=== PATIENT | male | born 1970 | race Caucasian/White ===

== ENCOUNTER 2020-10-21 08:03 | Day surgery (SDC) | payer BC, OTHER ==
[~2020-10-21 08:03] MED LIST: Lactated Ringers 1,000 ML IV SCH; Sodium Chloride 0.9% 10 ML SDV IV PRN; Sodium Chloride 0.9% 10 ML Syringe FLUSH PRN; Sodium Chloride 0.9% 2.5 ML Syringe FLUSH PRN
--- NOTE | 2020-10-21 08:42 | PCM.PREANE ---
Preanesthetic Assessment - Procedure Proposed Procedure: Colonoscopy - Anesthesia/Transfusion/Family Hx Anesthesia History: Prior Anesthesia Without Reaction Transfusion History: No Prior Transfusion(s) - Review of Systems General: No Symptoms Pulmonary: No Symptoms Cardiovascular: No Symptoms Gastrointestinal: No Symptoms Neurological: No Symptoms Other: Reports: None - Physical Assessment NPO Status Date: 10/19/20 NPO Status Time: 18:00 Vital Signs: Last Vital Signs Temp 97.2 F 10/21/20 08:17 Pulse 74 10/21/20 08:17 Resp 16 10/21/20 08:17 BP 130/86 10/21/20 08:17 Pulse Ox 95 10/21/20 08:17 Height: 5 ft 10 in Weight: 102.058 kg (obesity) ASA Class: 2 Mental Status: Alert & Oriented x3 Airway Class: Mallampati = 2 Dentition: Reports: Normal Dentition Thyro-Mental Finger Breadths: 3 Mouth Opening Finger Breadths: 3 ROM/Head Extension: Full Lungs: Clear to Auscultation, Normal Respiratory Effort Cardiovascular: Regular Rate, Regular Rhythm - Allergies Allergies/Adverse Reactions: Allergies Allergy/AdvReac Type Severity Reaction Status Date / Time No Known Allergies Allergy Verified 10/15/20 07:53 - Acknowledgements Anesthesia Type Planned: General Anesthesia Pt an Appropriate Candidate for the Planned Anesthesia: Yes Alternatives and Risks of Anesthesia Discussed w Pt/Guardian: Yes Pt/Guardian Understands and Agrees with Anesthesia Plan: Yes PreAnesthesia Questionnaire HEENT History: Reports: Other (See Below) Other HEENT History: wears contacts Cardiovascular History: Reports: None Respiratory History: Reports: None Gastrointestinal History: Reports: Hemorrhoids Genitourinary History: Reports: None Musculoskeletal History: Reports: None Neurological History: Reports: None Psychiatric History: Reports: Anxiety Endocrine/Metabolic History: Reports: Obesity/BMI 30+ Hematologic History: Reports: None Immunologic History: Reports: None Oncologic (Cancer) History: Reports: None Dermatologic History: Reports: None - Past Surgical History Head Surgeries/Procedures: Reports: None HEENT Surgical History: Reports: None Cardiovascular Surgical History: Reports: None Respiratory Surgical History: Reports: None GI Surgical History: Reports: None Male Surgical History: Reports: None Endocrine Surgical History: Reports: None Neurological Surgical History: Reports: None Musculoskeletal Surgical History: Reports: Arthroscopic Knee Oncologic Surgical History: Reports: None Dermatological Surgical History: Reports: None - SUBSTANCE USE Tobacco Use Status *Q: Never Tobacco User - HOME MEDS Home Medications: Home Meds Aspirin [Adult Aspirin Regimen] 81 mg PO DAILY 10/15/20 [History] ClonazePAM [KlonoPIN] 0.5 mg PO DAILY PRN 10/15/20 [History] Multivitamin 1 tab PO DAILY 10/15/20 [History] [place]-3/DHA/Epa/Fish Oil [Fish Oil 500 MG Softgel] 500 mg PO DAILY 10/15/20 [History] - CURRENT (IN HOUSE) MEDS Current Meds: Current Medications Lactated Ringer's (Ringers, Lactated) 1,000 mls @ 125 mls/hr IV ASDIRECTED NAINA Last Admin: 10/21/20 08:28 Dose: 125 mls/hr Documented by: Sodium Chloride (Sodium Chloride 0.9% 10 Ml Syringe) 10 ml FLUSH ASDIRECTED PRN PRN Reason: Keep Vein Open Sodium Chloride (Sodium Chloride 0.9% 2.5 Ml Syringe) 2.5 ml FLUSH ASDIRECTED PRN PRN Reason: Keep Vein Open Sodium Chloride (Sodium Chloride 0.9% 10 Ml Syringe) 10 ml FLUSH ASDIRECTED PRN PRN Reason: Keep Vein Open Sodium Chloride (Sodium Chloride 0.9% 2.5 Ml Syringe) 2.5 ml FLUSH ASDIRECTED PRN PRN Reason: Keep Vein Open Sodium Chloride (Sodium Chloride 0.9% 10 Ml Sdv) 10 ml IV ASDIRECTED PRN PRN Reason: IV Use
[2020-10-21] MEDS ORDERED: Lidocaine 2% 5 ML SDV ONE (09:04)
[2020-10-21] MEDS ORDERED: Propofol 200 MG/20 ML SDV ONE ×2 (09:04→09:36)
[2020-10-21] MEDS ORDERED: fentaNYL 100 MCG/2 ML SDV ONE (09:07)
--- NOTE | 2020-10-21 09:48 | PCM.OPNOTE ---
- General Post-Op/Procedure Note Date of Surgery/Procedure: 10/21/20 Operative Procedure(s): Diagnostic colonoscopy with polypectomy Findings: Large colon polyp on a stalk at 20 cm Pre Op Diagnosis: positive cologuard test Post-Op Diagnosis: sigmoid colon polyp Anesthesia Technique: MAC Primary Surgeon: Jen Hernandez Condition: Good
--- NOTE | 2020-10-21 10:05 | PCM.POSTAN ---
POST ANESTHESIA ASSESSMENT - MENTAL STATUS Mental Status: Alert, Oriented - VITAL SIGNS Vital Signs: Last Vital Signs Temp 97.5 F 10/21/20 09:44 Pulse 73 10/21/20 09:55 Resp 15 10/21/20 09:55 BP 99/60 10/21/20 09:55 Pulse Ox 97 10/21/20 09:55 - RESPIRATORY Respiratory Status: Respiratory Rate WNL, Airway Patent, O2 Saturation Stable - CARDIOVASCULAR CV Status: Pulse Rate WNL, Blood Pressure Stable - GASTROINTESTINAL GI Status: No Symptoms - POST OP HYDRATION Hydration Status: Adequate & Stable
--- NOTE | 2020-10-21 10:06 | PCM48HPAN ---
Post Anesthesia Note - EVALUATION WITHIN 48HRS OF ANESTHETIC Vital Signs in Normal Range: Yes Patient Participated in Evaluation: Yes Respiratory Function Stable: Yes Airway Patent: Yes Cardiovascular Function Stable: Yes Hydration Status Stable: Yes Pain Control Satisfactory: Yes Nausea and Vomiting Control Satisfactory: Yes Mental Status Recovered: Yes Vital Signs: Last Vital Signs Temp 97.5 F 10/21/20 09:44 Pulse 66 10/21/20 10:00 Resp 11 L 10/21/20 10:00 BP 98/60 10/21/20 10:00 Pulse Ox 95 10/21/20 10:00 - COMMENTS/OBSERVATIONS Free Text/Narrative:: Pt doing well post-op. VSS. No apparent anesthetic complications. Dr. Jose Sosa
--- NOTE | 2020-10-21 11:07 | OR ---
SURGEON: JEN HERNANDEZ MD DATE OF PROCEDURE: 10/21/2020 PREOPERATIVE DIAGNOSIS: Positive Cologuard test. POSTOPERATIVE DIAGNOSIS: Sigmoid colon polyp. PROCEDURE PERFORMED: Diagnostic colonoscopy with polypectomy. PRIMARY SURGEON: Jen Hernandez MD ANESTHESIA: MAC. INSTRUMENT USED: Olympus colonoscope. EXTENT OF EXAM: To the cecum. PREPARATION: Good. LIMITATIONS: None. INDICATIONS FOR EXAMINATION: The patient is a 49-year-old male who recently underwent a Cologuard test, which came back as positive. I explained the need for diagnostic colonoscopy. I explained the procedure, expected perioperative course, and the risks. He verbalized understanding and wishes to proceed. PROCEDURE IN DETAIL: The patient was brought to the endoscopy suite and placed in the left lateral decubitus position. A time-out was completed verifying the patient's name, age, date of , allergies, and procedure to be performed. Monitored anesthesia care was induced and continuous oxygen was provided via nasal cannula throughout the procedure. After adequate sedation was achieved, a digital rectal exam was performed. This exam was within normal limits. A well-lubricated colonoscope was inserted into the rectum and advanced under direct visualization to the level of the cecum. The cecum was identified by both visual and anatomic landmarks. A photograph was taken of the cecal cap; however, I was unable to retroflex the scope within the cecum due to looping of the scope more proximally. The scope was then fully withdrawn while examining the color, texture, anatomy, and integrity of mucosa from the cecum to the anal canal. The patient was found to have a pedunculated large polyp in the distal sigmoid colon at 20 cm. This was removed using a looped hot snare. The residual stalk was then inked for identification in the future. The remainder of the colon appeared normal. The scope was brought into the rectum and retroflexed to allow visualization of the anal canal opening. This appeared normal, and a photograph was taken. The scope was then straightened out and fully withdrawn. The cecum to anus time was 15 minutes. The patient tolerated the procedure well and was transferred to the PACU in stable condition. ENDOSCOPIC DIAGNOSIS: Sigmoid colon polyp. RECOMMENDATIONS: Follow up in clinic in 2 weeks. HARRIS HUMPHRIES /[id number]
== END 2020-10-21 10:28 | disposition home or self-care (01) ==
LOC: MW.SDS 08:03
PROVIDERS: ATTEND Surgery
DX: D12.5 Benign neoplasm of sigmoid colon (principal); E66.9 Obesity, unspecified; Z79.82 Long term (current) use of aspirin; Z79.899 Other long term (current) drug therapy; Z98.890 Other specified postprocedural states; Z68.32 Body mass index [BMI] 32.0-32.9, adult
CPT/HCPCS: 45385; J2704; J3010; J7120; 00811; 88305

== ENCOUNTER 2020-12-12 08:27 | Emergency (ER) | payer BC ==
[2020-12-12] MEDS ORDERED: Sodium Chloride 0.9% 10 ML Syringe FLUSH PRN (08:49)
[2020-12-12] MEDS ORDERED: Ondansetron 4 MG/2 ML SDV IVPUSH ONE (08:49)
[2020-12-12] MEDS ORDERED: Sodium Chloride 0.9% 2.5 ML Syringe FLUSH PRN (08:49)
--- NOTE | 2020-12-12 08:49 | EDM.PDOC ---
ED HPI GENERAL MEDICAL PROBLEM - General Chief Complaint: Gastrointestinal Problem Stated Complaint: ABDOMINAL PROBLEMS/CONSTANT GAGING Time Seen by Provider: 12/12/20 08:30 - History of Present Illness INITIAL COMMENTS - FREE TEXT/NARRATIVE: History of present illness: [] Patient perceives gas moving about and a little discomfort in his abdomen for 3 weeks. The discomfort moves from under the left of the right costal margin and now sort of localized in the epigastrium. Over the last couple of days it is bothering him more in the epigastrium. He is nauseated for couple of days. His appetite is diminished. He does not have fever and chills. He is able to tolerate oral intake. His bowels and bladder working normally. He is not orthostatic. The patient drinks a little better in the summer when he is at the [place] but otherwise almost never drinks alcohol at all. He does not smoke. 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 He occasionally takes clonazepam for anxiety related to stress. In the summer the patient had a positive Cologuard test and had a colonoscopy with removal of a polyp that was a villous adenoma and benign. The patient has knee arthroscopy in the remote past. He otherwise has no surgery and no medical history of significance. There is a family history of breast cancer but not of any GI malignancy. Review of systems: As per history of present illness and below otherwise all systems reviewed and negative. Past medical history: As per history of present illness and as reviewed below otherwise noncontributory. Surgical history: As per history of present illness and as reviewed below otherwise noncontributory. Social history: No reported history of drug or alcohol abuse. Family history: As per history of present illness and as reviewed below otherwise noncontributor y. Physical exam: Constitutional - well developed, well-nourished and in no acute distress HEENT - normocephalic, no evidence of trauma - external nose and mouth normal - no mass in neck and no JVD - mucosae moist EYES - full EOM, PERRL, no icterus - no evidence of inflammation, injection, or drainage Respiratory - no respiratory distress, equal bilateral expansion, lungs clear to auscultation and no abnormal lung sounds Cardiovascular - Regular Rhythm with S1 and S2 appreciated and no murmur, gallop or rub. [place] digits with brisk capillary refill in the nails. GI - abdomen tender in the epigastrium only-soft without distension or organomegaly -diminished bowel sounds - no guard or rebound Musculoskeletal no gross deformity of long bones or joints - no tenderness, swelling or edema Neurologic - Alert and oriented times four - CN II-XII grossly intact - motor sensory and coordination symmetrically normal Psychiatric - appropriate mood and affect with normal thought content Hematologic - No petechiae or purpura - mucosa appropriate color and sclera not pale - normal nail bed color and refill Integument - no rash or evidence of trauma - normal turgor Diagnostics: [] Therapeutics: [] Impression: [] Plan: [] Definitive disposition and diagnosis as appropriate pending reevaluation and review of above. - Related Data Allergies Allergy/AdvReac Type Severity Reaction Status Date / Time No Known Allergies Allergy Verified 12/12/20 08:40 Home Meds: Home Meds Aspirin [Adult Aspirin Regimen] 81 mg PO DAILY 10/15/20 [History] ClonazePAM [KlonoPIN] 0.5 mg PO DAILY PRN 10/15/20 [History] Multivitamin 1 tab PO DAILY 10/15/20 [History] [place]-3/DHA/Epa/Fish Oil [Fish Oil 500 MG Softgel] 500 mg PO DAILY 10/15/20 [History] Past Medical History HEENT History: Reports: Other (See Below) Other HEENT History: wears contacts Cardiovascular History: Reports: None Respiratory History: Reports: None Gastrointestinal History: Reports: Hemorrhoids Genitourinary History: Reports: None Musculoskeletal History: Reports: None Neurological History: Reports: None Psychiatric History: Reports: Anxiety Endocrine/Metabolic History: Reports: Obesity/BMI 30+ Hematologic History: Reports: None Immunologic History: Reports: None Oncologic (Cancer) History: Reports: None Dermatologic History: Reports: None - Past Surgical History Head Surgeries/Procedures: Reports: None HEENT Surgical History: Reports: None Cardiovascular Surgical History: Reports: None Respiratory Surgical History: Reports: None GI Surgical History: Reports: None Male Surgical History: Reports: None Endocrine Surgical History: Reports: None Neurological Surgical History: Reports: None Musculoskeletal Surgical History: Reports: Arthroscopic Knee Oncologic Surgical History: Reports: None Dermatological Surgical History: Reports: None ED ROS GENERAL - Review of Systems Review Of Systems: Comprehensive ROS is negative, except as noted in HPI. ED EXAM, GENERAL - Physical Exam Exam: See Below Free Text/Narrative:: My physical exam is in the HPI Course - Vital Signs Text/Narrative:: 9:34 AM labs normal x-rays unremarkable to me. Plan continue Prilosec, GI cocktail here, make appointment for surgical upper GI endoscopy. Return if worse or fever. Last Recorded V/S: Last Vital Signs Temp 36.0 C L 12/12/20 08:36 Pulse 94 12/12/20 08:36 Resp BP 140/96 H 12/12/20 08:36 Pulse Ox 98 12/12/20 08:36 - Orders/Labs/Meds Orders: Active Orders 24 hr Category Date Time Status Abdomen 1V Upright [CR] Stat Exams 12/12/20 09:01 Taken GI Cocktail with Reglan 25 ML PO x 1 Med 12/12/20 09:34 Ordered Alum Hydrox/Mag Hydrox/Simeth [Mag-Al Plus] 15 ml Metoclopramide [Reglan] 5 mg Lidocaine 2% [Xylocaine 2% Viscous] 5 ml PO ONETIME Sodium Chloride 0.9% [Normal Saline] 1,000 ml Med 12/12/20 08:50 Active IV .Bolus Sodium Chloride 0.9% [Saline Flush] Med 12/12/20 08:49 Active 10 ml FLUSH ASDIRECTED PRN Sodium Chloride 0.9% [Saline Flush] Med 12/12/20 08:49 Active 2.5 ml FLUSH ASDIRECTED PRN Saline Lock Insert [OM.PC] Stat Oth 12/12/20 08:49 Ordered Medication Orders Sodium Chloride (Normal Saline) 1,000 mls @ 1,000 mls/hr IV .Bolus ONE Stop: 12/12/20 09:49 Last Admin: 12/12/20 08:59 Dose: 1,000 mls/hr Documented by: VANCMOR Sodium Chloride (Sodium Chloride 0.9% 10 Ml Syringe) 10 ml FLUSH ASDIRECTED PRN PRN Reason: Keep Vein Open Last Admin: 12/12/20 09:00 Dose: 10 ml Documented by: VANCMOR Sodium Chloride (Sodium Chloride 0.9% 2.5 Ml Syringe) 2.5 ml FLUSH ASDIRECTED PRN PRN Reason: Keep Vein Open Last Admin: 12/12/20 08:59 Dose: 2.5 ml Documented by: MARYURI Labs: Laboratory Tests 12/12/20 12/12/20 12/12/20 Range/Units 08:42 08:42 08:57 WBC 6.74 (4.0-11.0) K/uL RBC 5.54 (4.50-5.90) M/uL Hgb 16.7 (13.0-17.0) g/dL Hct 46.7 (38.0-50.0) % MCV 84.3 (80.0-98.0) fL MCH 30.1 (27.0-32.0) pg MCHC 35.8 (31.0-37.0) g/dL RDW Std Deviation 37.7 (28.0-62.0) fl RDW Coeff of Merissa 12 (11.0-15.0) % Plt Count 253 (150-400) K/uL MPV 10.90 (7.40-12.00) fL Neut % (Auto) 65.6 (48.0-80.0) % Lymph % (Auto) 26.3 (16.0-40.0) % [place] % (Auto) 5.6 (0.0-15.0) % Eos % (Auto) 2.2 (0.0-7.0) % Baso % (Auto) 0.3 (0.0-1.5) % Neut # (Auto) 4.4 (1.4-5.7) K/uL Lymph # (Auto) 1.8 (0.6-2.4) K/uL [place] # (Auto) 0.4 (0.0-0.8) K/uL Eos # (Auto) 0.2 (0.0-0.7) K/uL Baso # (Auto) 0.0 (0.0-0.1) K/uL Nucleated RBC % 0.0 /100WBC Nucleated RBCs # 0 K/uL Sodium 142 (136-148) mmol/L Potassium 3.8 (3.5-5.1) mmol/L Chloride 102 (98-107) mmol/L Carbon Dioxide 26.7 (21.0-32.0) mmol/L BUN 16 (7.0-18.0) mg/dL Creatinine 1.0 (0.8-1.3) mg/dL Est Cr Clr Drug Dosing 91.25 mL/min Estimated GFR (MDRD) > 60.0 ml/min Glucose 128 H (74-106) mg/dL Calcium 9.4 (8.5-10.1) mg/dL Total Bilirubin 0.8 (0.2-1.0) mg/dL AST 32 (15-37) IU/L ALT 60 (14-63) IU/L Alkaline Phosphatase 116 (46-116) U/L Total Protein 8.1 (6.4-8.2) g/dL Albumin 4.5 (3.4-5.0) g/dL Globulin 3.6 (2.6-4.0) g/dL Albumin/Globulin Ratio 1.2 (0.9-1.6) Lipase 96 (73-393) U/L Urine Color YELLOW Urine Appearance CLEAR Urine pH 6.0 (5.0-8.0) Ur Specific [place] 1.020 (1.001-1.035) Urine Protein NEGATIVE (NEGATIVE) mg/dL Urine Glucose (UA) NEGATIVE (NEGATIVE) mg/dL Urine Ketones NEGATIVE (NEGATIVE) mg/dL Urine Occult Blood NEGATIVE (NEGATIVE) Urine Nitrite NEGATIVE (NEGATIVE) Urine Bilirubin NEGATIVE (NEGATIVE) Urine Urobilinogen 0.2 (<2.0) EU/dL Ur Leukocyte Esterase NEGATIVE (NEGATIVE) Meds: Medications Generic Name Dose Route Start Last Admin Trade Name Freq PRN Reason Stop Dose Admin Sodium Chloride 1,000 mls @ 1,000 mls/hr 12/12/20 08:50 12/12/20 08:59 Normal Saline IV 12/12/20 09:49 1,000 mls/hr .Bolus ONE Administration Sodium Chloride 10 ml 12/12/20 08:49 12/12/20 09:00 Sodium Chloride 0.9% 10 Ml Syringe FLUSH 10 ml ASDIRECTED PRN Administration Keep Vein Open Sodium Chloride 2.5 ml 12/12/20 08:49 12/12/20 08:59 Sodium Chloride 0.9% 2.5 Ml Syringe FLUSH 2.5 ml ASDIRECTED PRN Administration Keep Vein Open Discontinued Medications Generic Name Dose Route Start Last Admin Trade Name Freq PRN Reason Stop Dose Admin Ondansetron HCl 4 mg 12/12/20 08:49 12/12/20 08:58 Ondansetron 4 Mg/2 Ml Sdv IVPUSH 12/12/20 08:50 4 mg ONETIME ONE Administration Departure - Departure Time of Disposition: 09:41 Disposition: Home, Self-Care 01 Condition: Good Clinical Impression: Gastritis - Discharge Information Referrals: Adam Guillory MD [Primary Care Provider] - Forms: ED Department Discharge Additional Instructions: Go ahead make an appointment with the surgical in for upper GI endoscopy. If you get worse or have a fever you should return. Its loss easier to cancel appointment and get one. Your blood pressure was elevated on arrival. Keep an eye on that. Continue Prilosec. As you are gradually improving discontinue that for up to 6 weeks. Antiacids as needed are advised. [facility] - General Surgery Professional Building [address] [place] [address], [address] [place] [address] [facility] [address] [place] [id number] [address] The following information is given to patients seen in the emergency department who are being discharged to home. This information is to outline your options for follow-up care. We provide all patients seen in our emergency department with a follow-up referral. The need for follow-up, as well as the timing and circumstances, are variable depending upon the specifics of your emergency department visit. If you don't have a primary care physician on staff, we will provide you with a referral. We always advise you to contact your personal physician following an emergency department visit to inform them of the circumstance of the visit and for follow-up with them and/or the need for any referrals to a consulting specialist. The emergency department will also refer you to a specialist when appropriate. This referral assures that you have the opportunity for follow-up care with a specialist. All of these measure are taken in an effort to provide you with opti mal care, which includes your follow-up. Under all circumstances we always encourage you to contact your private physician who remains a resource for coordinating your care. When calling for follow-up care, please make the office aware that this follow-up is from your recent emergency room visit. If for any reason you are refused follow-up, please contact the [facility] Emergency Department at and asked to speak to the emergency department charge nurse. Sepsis Event Note (ED) - Focused Exam Vital Signs: Vital Signs Temp Pulse BP Pulse Ox 12/12/20 08:36 36.0 C L 94 140/96 H 98 - My Orders Last 24 Hours: My Active Orders 12/12/20 08:49 Sodium Chloride 0.9% [Saline Flush] 10 ml FLUSH ASDIRECTED PRN Sodium Chloride 0.9% [Saline Flush] 2.5 ml FLUSH ASDIRECTED PRN Saline Lock Insert [OM.PC] Stat 12/12/20 08:50 Sodium Chloride 0.9% [Normal Saline] 1,000 ml IV .Bolus 12/12/20 09:01 Abdomen 1V Upright [CR] Stat 12/12/20 09:34 GI Cocktail with Reglan 25 ML PO x 1 Alum Hydrox/Mag Hydrox/Simeth [Mag-Al Plus] 15 ml Metoclopramide [Reglan] 5 mg Lidocaine 2% [Xylocaine 2% Viscous] 5 ml PO ONETIME - Assessment/Plan Last 24 Hours: My Active Orders 12/12/20 08:49 Sodium Chloride 0.9% [Saline Flush] 10 ml FLUSH ASDIRECTED PRN Sodium Chloride 0.9% [Saline Flush] 2.5 ml FLUSH ASDIRECTED PRN Saline Lock Insert [OM.PC] Stat 12/12/20 08:50 Sodium Chloride 0.9% [Normal Saline] 1,000 ml IV .Bolus 12/12/20 09:01 Abdomen 1V Upright [CR] Stat 12/12/20 09:34 GI Cocktail with Reglan 25 ML PO x 1 Alum Hydrox/Mag Hydrox/Simeth [Mag-Al Plus] 15 ml Metoclopramide [Reglan] 5 mg Lidocaine 2% [Xylocaine 2% Viscous] 5 ml PO ONETIME
[2020-12-12] MEDS ORDERED: Sodium Chloride 0.9% 1,000 ML IV ONE (08:50)
[2020-12-12 09:20] LABS: BLOOD UREA NITROGEN,BUN 16 mg/dL (7.0-18.0); CARBON DIOXIDE,CO2 26.7 mmol/L (21.0-32.0); CHLORIDE,CL 102 mmol/L (98-107); GLUCOSE RANDOM 128 mg/dL (74-106); LIPASE 96 U/L (73-393); POTASSIUM,K 3.8 mmol/L (3.5-5.1); SODIUM,NA 142 mmol/L (136-148)
[2020-12-12] MEDS ORDERED: Alum Hydrox/Mag Hydrox/Simeth 15 ML, Metoclopramide 5 MG, Lidocaine 2% 5 ML PO ONE ×3 (09:34)
--- NOTE | 2020-12-12 10:02 | CR ---
INDICATION: Abdominal pain. COMPARISON: None. TECHNIQUE: Abdomen, 2 views. FINDINGS: Nonobstructive bowel gas pattern. Mild amount of gas scattered throughout the colon. No significant stool burden. There is a 1.4 cm radiopaque density in the right lower quadrant which most likely represents an ingested pill fragment. No pneumatosis. No free air on upright view. The lung bases are clear. The bones are unremarkable. IMPRESSION: 1. Nonobstructive bowel gas pattern. 2. Probable ingested pill fragment in the right lower quadrant. Dictated by Lenora Chinchilla MD @ 12/12/2020 10:01:10 AM (Electronically Signed)
== END 2020-12-12 10:07 | disposition home or self-care (01) ==
LOC: MW.ED 08:27
DX: K29.70 Gastritis, unspecified, without bleeding (principal); E66.9 Obesity, unspecified; Z68.32 Body mass index [BMI] 32.0-32.9, adult; Z79.82 Long term (current) use of aspirin
CPT/HCPCS: 36415; 74018; 80053; 81003; 83690; 85025; 96374; 99284; A9270; J2405; J7030

== ENCOUNTER 2021-01-01 06:59 | Day surgery (SDC) | payer BC ==
[2021-01-01] MEDS ORDERED: Propofol 200 MG/20 ML SDV ONE (07:26)
[2021-01-01] MEDS ORDERED: Lidocaine 2% 5 ML SDV ONE (07:26)
[2021-01-01] MEDS ORDERED: fentaNYL 100 MCG/2 ML SDV ONE (07:27)
--- NOTE | 2021-01-01 07:36 | PCM.PREANE ---
Preanesthetic Assessment - Procedure Proposed Procedure: EGD - Anesthesia/Transfusion/Family Hx Anesthesia History: Prior Anesthesia Without Reaction Family History of Anesthesia Reaction: No Transfusion History: No Prior Transfusion(s) - Review of Systems General: No Symptoms Pulmonary: No Symptoms Cardiovascular: No Symptoms Gastrointestinal: No Symptoms (GERD poorly controlled) Neurological: No Symptoms Other: Reports: None - Physical Assessment NPO Status Date: 12/31/20 NPO Status Time: 17:30 Vital Signs: Last Vital Signs Temp 97.2 F 01/01/21 07:11 Pulse 80 01/01/21 07:11 Resp 16 01/01/21 07:11 BP 142/93 H 01/01/21 07:11 Pulse Ox 96 01/01/21 07:11 Height: 5 ft 10 in Weight: 101.605 kg ASA Class: 2 Mental Status: Alert & Oriented x3 Airway Class: Mallampati = 3 Dentition: Reports: Normal Dentition Thyro-Mental Finger Breadths: 3 Mouth Opening Finger Breadths: 3 ROM/Head Extension: Full Lungs: Clear to Auscultation, Normal Respiratory Effort Cardiovascular: Regular Rate, Regular Rhythm - Allergies Allergies/Adverse Reactions: Allergies Allergy/AdvReac Type Severity Reaction Status Date / Time No Known Allergies Allergy Verified 12/30/20 11:56 - Acknowledgements Anesthesia Type Planned: General Anesthesia Pt an Appropriate Candidate for the Planned Anesthesia: Yes Alternatives and Risks of Anesthesia Discussed w Pt/Guardian: Yes Pt/Guardian Understands and Agrees with Anesthesia Plan: Yes PreAnesthesia Questionnaire HEENT History: Reports: Other (See Below) Other HEENT History: wears contacts Cardiovascular History: Reports: None Respiratory History: Reports: None Gastrointestinal History: Reports: Colon Polyp, GERD, Hemorrhoids Other Gastrointestinal History: abd pain Genitourinary History: Reports: None Musculoskeletal History: Reports: None Neurological History: Reports: None Psychiatric History: Reports: Anxiety Endocrine/Metabolic History: Reports: Obesity/BMI 30+ Hematologic History: Reports: None Immunologic History: Reports: None Oncologic (Cancer) History: Reports: None Dermatologic History: Reports: None - Infectious Disease History Infectious Disease History: Reports: Chicken Pox - Past Surgical History Head Surgeries/Procedures: Reports: None HEENT Surgical History: Reports: None Cardiovascular Surgical History: Reports: None Respiratory Surgical History: Reports: None GI Surgical History: Reports: Colonoscopy Male Surgical History: Reports: None Endocrine Surgical History: Reports: None Neurological Surgical History: Reports: None Musculoskeletal Surgical History: Reports: Arthroscopic Knee Oncologic Surgical History: Reports: None Dermatological Surgical History: Reports: None - SUBSTANCE USE Tobacco Use Status *Q: Never Tobacco User - HOME MEDS Home Medications: Home Meds Aspirin [Adult Aspirin Regimen] 81 mg PO DAILY 10/15/20 [History] ClonazePAM [KlonoPIN] 0.5 mg PO ASDIRECTED PRN 10/15/20 [History] Multivitamin 1 tab PO DAILY 10/15/20 [History] [place]-3/DHA/Epa/Fish Oil [Fish Oil 500 MG Softgel] 500 mg PO DAILY 10/15/20 [History] Cholecalciferol (Vitamin D3) [Vitamin D3] 5,000 units PO DAILY 12/30/20 [Hist ory] Famotidine [Pepcid] 40 mg PO DAILY 12/30/20 [History] Omeprazole 40 mg PO DAILY 12/30/20 [History] Zinc 1 tab PO DAILY 12/30/20 [History] - CURRENT (IN HOUSE) MEDS Current Meds: Current Medications Discontinued Medications Fentanyl (Fentanyl 100 Mcg/2 Ml Sdv) Confirm Administered Dose 100 mcg .ROUTE .STK-MED ONE Stop: 01/01/21 07:28 Lidocaine (Lidocaine 2% 5 Ml Sdv) Confirm Administered Dose 5 ml .ROUTE .STK-MED ONE Stop: 01/01/21 07:27 Propofol (Propofol 200 Mg/20 Ml Sdv) Confirm Administered Dose 200 mg .ROUTE .ST K-MED ONE Stop: 01/01/21 07:27
--- NOTE | 2021-01-01 08:34 | PCM.POSTAN ---
POST ANESTHESIA ASSESSMENT - MENTAL STATUS Mental Status: Alert, Oriented - VITAL SIGNS Vital Signs: Last Vital Signs Temp 97.2 F 01/01/21 07:11 Pulse 80 01/01/21 07:11 Resp 16 01/01/21 07:11 BP 142/93 H 01/01/21 07:11 Pulse Ox 96 01/01/21 07:11 - RESPIRATORY Respiratory Status: Respiratory Rate WNL, Airway Patent, O2 Saturation Stable - CARDIOVASCULAR CV Status: Pulse Rate WNL, Blood Pressure Stable - GASTROINTESTINAL GI Status: No Symptoms - PAIN Pain Score: 0 - POST OP HYDRATION Hydration Status: Adequate & Stable
--- NOTE | 2021-01-01 08:42 | PCM48HPAN ---
Post Anesthesia Note - EVALUATION WITHIN 48HRS OF ANESTHETIC Vital Signs in Normal Range: Yes Patient Participated in Evaluation: Yes Respiratory Function Stable: Yes Airway Patent: Yes Cardiovascular Function Stable: Yes Hydration Status Stable: Yes Pain Control Satisfactory: Yes Nausea and Vomiting Control Satisfactory: Yes Mental Status Recovered: Yes Vital Signs: Last Vital Signs Temp 97.5 F 01/01/21 08:27 Pulse 76 01/01/21 08:32 Resp 12 01/01/21 08:32 BP 102/51 L 01/01/21 08:32 Pulse Ox 95 01/01/21 08:32 - COMMENTS/OBSERVATIONS Free Text/Narrative:: Pt doing well post-op. VSS. No apparent anesthetic complications. Dr. Jose Sosa
--- NOTE | 2021-01-01 09:55 | PCM.OPNOTE ---
- General Post-Op/Procedure Note Date of Surgery/Procedure: 01/01/21 Operative Procedure(s): Diagnostic EGD Findings: Epigastric discomfort Pre Op Diagnosis: Epigastric pain Post-Op Diagnosis: same Anesthesia Technique: MAC Primary Surgeon: Jen Hernandez Condition: Good Free Text/Narrative:: Intake & Output 12/31/20 01/01/21 01/01/21 22:59 06:59 14:59 Intake Total 700 Balance 700
--- NOTE | 2021-01-02 20:56 | OR ---
SURGEON: JEN HERNANDEZ MD DATE OF PROCEDURE: 01/01/2021 PREOPERATIVE DIAGNOSIS: Epigastric pain. POSTOPERATIVE DIAGNOSIS: Epigastric pain. PROCEDURE PERFORMED: Diagnostic esophagogastroduodenoscopy with biopsy. PRIMARY SURGEON: Jen Hernandez MD ANESTHESIA: MAC. INSTRUMENT USED: Olympus endoscope. EXTENT OF EXAM: To the second portion of the duodenum. PREPARATION: Good. LIMITATIONS: None. INDICATIONS FOR EXAMINATION: The patient is a 50-year-old male who has been having epigastric discomfort. This sometimes radiates to his back and his side. The decision was made to proceed with diagnostic EGD to work this up further. I explained the procedure, expected perioperative course, and the risks. He verbalized understanding and wishes to proceed. PROCEDURE IN DETAIL: The patient was brought in to the endoscopy suite and placed in a semi beach chair position. A time-out was completed verifying the patient's name, age, date of , allergies, and procedure to be performed. A bite block was placed in the patient's mouth. Monitored anesthesia care was induced and continuous oxygen was provided via nasal cannula throughout the procedure. After adequate sedation was achieved, a well-lubricated endoscope was placed in the patient's mouth and advanced under direct visualization to the level of the second portion of the duodenum. This appeared normal and a photograph was taken. The scope was then fully withdrawn while examining the color, texture, anatomy, and integrity of the mucosa of the upper GI tract. The duodenum appeared normal but a biopsy was taken within the first portion of the duodenum and sent to Pathology for histologic review. The scope was then brought into the stomach. A photograph was taken of the pylorus and GE junction. Both appeared anatomically normal. The gastric mucosa was free of gross inflammation or ulceration. Biopsies were taken of the gastric antrum, body, and fundus and sent for histologic review and H pylori testing. The scope was then brought into the distal esophagus. The Z-line appeared normal and a photograph was taken. There was no evidence of any distal esophagitis. A biopsy was taken of the distal esophageal mucosa 1 cm above the Z-line and sent to Pathology for histologic review. The remainder of the esophagus was free of pathology. The scope was then removed and the procedure terminated. The patient tolerated the procedure well and was transferred to the PACU in stable condition. ENDOSCOPIC DIAGNOSIS: Epigastric abdominal pain. RECOMMENDATIONS: We will follow up with the patient in two weeks in clinic to review his pathology results and any further steps in diagnosis and treatment. HARRIS / YANDEL /[id number]
== END 2021-01-01 08:50 | disposition home or self-care (01) ==
LOC: MW.SDS 06:59
PROVIDERS: ATTEND Surgery
DX: K29.50 Unspecified chronic gastritis without bleeding (principal); I78.1 Nevus, non-neoplastic; F41.9 Anxiety disorder, unspecified; K21.9 Gastro-esophageal reflux disease without esophagitis; E66.9 Obesity, unspecified; Z79.82 Long term (current) use of aspirin; Z79.899 Other long term (current) drug therapy; Z79.890 Hormone replacement therapy; Z68.32 Body mass index [BMI] 32.0-32.9, adult
CPT/HCPCS: 43239; J2704; J3010; 00731

== ENCOUNTER 2022-01-07 10:23 | Day surgery (SDC) | payer BC ==
[2022-01-07] MEDS ORDERED: Propofol 200 MG/20 ML SDV ONE (11:31)
[2022-01-07] MEDS ORDERED: Lactated Ringers 1,000 ML IV SCH (11:45)
== END 2022-01-07 13:58 | disposition home or self-care (01) ==
LOC: MW.SDS 10:23
PROVIDERS: ATTEND Surgery
DX: Z09 Encounter for follow-up examination after completed treatment for conditions other than malignant neoplasm (principal); F41.9 Anxiety disorder, unspecified; E66.9 Obesity, unspecified; Z98.890 Other specified postprocedural states; Z79.82 Long term (current) use of aspirin; Z79.899 Other long term (current) drug therapy; Z86.010 Personal history of colon polyps
CPT/HCPCS: 45378; J2704; J7120